=== PATIENT | male | born 1930 | race Caucasian/White ===

== ENCOUNTER 2019-03-20 23:10 | Emergency (ER) | payer OTHER, MEDICAID ==
[~2019-03-20] VITALS: Ht 162.6 cm; Wt 65.8 kg
[2019-03-20 23:10] VITALS: BP 150/87
--- NOTE | 2019-03-20 23:11 | NUR ---
PT BIBA TO BED 06.
--- NOTE | 2019-03-20 23:15 | NUR ---
FIRST CONTACT PATIENT LEIGHA FROM HOME C/O ANXIETY RELATED TO L BROKE HEARING AID X 2 DAYS AGO, PER EMS, SON WAS ON SCENE STATES PATIENT HAS GOTTEN INCREASING ANXIOUS SINCE THE HEARING AID WAS BROKEN, ALSO C/O MORENO. PATIENT GCS 15, AAOX4, BREATHING IS EVEN AND UNLABORED, EQUAL RISE AND FALL OF CHEST. PATIENT DENIES ANY CP/SOB, NO N/V/D. NO ACUTE DISTRESS NOTED, DR FOY MADE AWARE, WILL CONTINUE TO MONITOR
--- NOTE | 2019-03-20 23:28 | NUR ---
Patient being evaluated by physician at bedside.
--- NOTE | 2019-03-21 00:06 | NUR ---
Son called made aware patient is DC- son states will come and take patient home
[2019-03-21 00:25] VITALS: BP 140/91
--- NOTE | 2019-03-21 00:25 | NUR ---
Patient discharged with v/s stable. Written and verbal after care instructions given and explained. Patient verbalized understanding. Ambulatory with steady gait. All questions addressed prior to discharge. Advised to follow up with PMD.
== END 2019-03-21 00:26 | disposition home or self-care (01) ==
LOC: MED 23:10 → EDBD 23:10 → MED 03-21 00:26
DX: F41.9 Anxiety disorder, unspecified (principal); R05 Cough
CPT/HCPCS: 71045; 99284; Q0092; 99283